=== PATIENT | female | born 1965 | race Caucasian/White ===

== ENCOUNTER 2024-09-02 06:25 | Day surgery (SDC) | payer OTHER, SELFPAY | END 2024-09-02 10:55 | disposition home or self-care (01) | LOC: GI 06:25 | PROVIDERS: ATTENDING PHYSICIAN Internal Medicine Gastroenterology | DX: Z12.11 Encounter for screening for malignant neoplasm of colon (principal); D12.0 Benign neoplasm of cecum; K57.30 Diverticulosis of large intestine without perforation or abscess without bleeding; K56.2 Volvulus; Q43.8 Other specified congenital malformations of intestine; K62.89 Other specified diseases of anus and rectum; K92.1 Melena | CPT/HCPCS: 45385; 45380; 43239; 88305; 88342 ==